=== PATIENT | female | born 1965 | race African-American/Black ===

== ENCOUNTER 2020-02-08 15:07 | Outpatient (CLI) | payer OTHER | END 2020-02-08 22:55 | disposition home or self-care (01) | LOC: MAMMO 15:07 | DX: Z12.31 Encounter for screening mammogram for malignant neoplasm of breast (principal) ==

== ENCOUNTER 2020-02-28 16:48 | Outpatient (CLI) | payer OTHER | END 2020-02-28 19:19 | disposition home or self-care (01) | LOC: RAD 16:48 | DX: R06.09 Other forms of dyspnea (principal) ==

== ENCOUNTER 2020-02-28 18:39 | Outpatient (CLI) | payer OTHER | END 2020-02-28 19:19 | disposition home or self-care (01) | LOC: LAB 18:39 | DX: R06.09 Other forms of dyspnea (principal) | CPT/HCPCS: 82550; 83880; 84484 ==

== ENCOUNTER 2020-04-29 09:07 | Outpatient (CLI) | payer OTHER | END 2020-04-29 19:15 | disposition home or self-care (01) | LOC: RESP 09:07 | DX: I49.3 Ventricular premature depolarization (principal); R06.09 Other forms of dyspnea ==

== ENCOUNTER 2020-04-30 07:59 | Outpatient (CLI) | payer OTHER ==
[~2020-04-30] VITALS: Ht 152.4 cm; Wt 149.7 kg
== END 2020-04-30 20:43 | disposition home or self-care (01) ==
LOC: NM 07:59
DX: I49.3 Ventricular premature depolarization (principal)
CPT/HCPCS: A9500; J2785